=== PATIENT | male | born 1985 | race Asian ===

== ENCOUNTER 2022-12-13 04:40 | Emergency (ER) | payer OTHER, SELFPAY ==
--- NOTE | ~2022-12-13 | CT_ITS ---
CT of the Abdomen and Pelvis: Indication: Abdominal pain Technique: 2.5 mm axial scans were obtained through the abdomen and pelvis following intravenous adm inistration of 100 cc of Omnipaque 350. Dose reduction technique was used on this scan by utilizing a utomated exposure control and iterative reconstruction technique. The dose-length product (DLP) was 2 88.54 mGy-cm. Findings: Scans through the lung bases are unremarkable. The liver, spleen, pancreas, gallbladder, adrenals and kidneys are within normal limits. No evidence of aortic aneurysm. No lymphadenopathy. No bowel obstruction or bowel wall thickening. There is no evidence to suggest acute appendicitis. Images through the pelvis were performed. Questionable minimal urinary bladder wall thickening. No pe lvic mass seen. No ascites. Impression: Questionable mild urinary bladder wall thickening. Correlate for cystitis. No other significant findings. Reviewed, dictated and finalized at [facility]. Impression: Questionable mild urinary bladder wall thickening. Correlate for cystitis. No other significant findings.
[2022-12-13 04:44] VITALS: BP 155/91; PULSE 62; RESP 17; TEMP 36.4; O2SAT 100
--- NOTE | 2022-12-13 05:31 | ED.GENADULT ---
HPI - General Adult General Chief complaint: Abdominal Pain Stated complaint: RLQ pain Time Seen by Provider: 12/13/22 04:51 History of Present Illness HPI narrative: This is a 37-year-old male who speaks Filipino presenting ED for abdominal pain. Regulatory Lead service was used for all communication. Patient says that the pain started approximately 7 hours prior to arrival. It originally in the upper right but migrated to the right lower quadrant. It is a burning pain that is 10/10 and comes and goes. He has never had pain like this before there are no exacerbating or alleviating factors. He did have an episode of diarrhea. No fever chills nausea vomiting chest pain difficulty breathing. He notes some pain on urination. Patient attempted to relieve his pain by coining himself which was unsuccessful. Related Data Allergies Allergy/AdvReac Type Severity Reaction Status Date / Time haloperidol AdvReac Swelling Verified 12/13/22 07:26 of the Eye [facility] Past Medical History Medical History Asthma Exam Narrative: APPEARANCE: No apparent distress. Head: atraumatic. EYES: EOMI, NOSE: Atraumatic NECK: Trachea midline RESPIRATORY: No increased rate of breathing CARDIOVASCULAR: RRR, ABDOMINAL: soft with tenderness to palpation in the right lower quadrant. No guarding or rebound MUSCULOSKELETAl: No obvious deformities NEURO: Alert. Moving 4/4 extremities SKIN:: patient has aden over his chest and arms from [place]. He has cutting aden on his back. PSYCHIATRIC: Normal affect Course Vital Signs Vital signs: Vital Signs Temperature 97.6 F 12/13/22 04:44 Pulse Rate 62 12/13/22 04:44 Respiratory Rate 17 12/13/22 04:44 Blood Pressure 155/91 H 12/13/22 04:44 Pulse Oximetry 100 12/13/22 04:44 Oxygen Delivery Room Air 12/13/22 04:44 Temperature 97.6 F 12/13/22 04:44 Pulse Rate 62 12/13/22 04:44 Respiratory Rate 17 12/13/22 04:44 Blood Pressure 155/91 H 12/13/22 04:44 Pulse Oximetry 100 12/13/22 04:44 Oxygen Delivery Room Air 12/13/22 04:44 Medical Decision Making [facility] Narrative Medical decision making narrative: -Presentation: 37-year-old male presenting with right lower quadrant abdominal pain. -DDX includes but is not limited to: Appendicitis, gastritis, gallbladder disease, UTI, colitis -Co-morbidities complicating care: asthma -Social determinants of health: patient works at a [employer] shop, speaks Filipino -External Chart Review: none -Hx from independent Sources: sister at bedside -Discussion of Management/Consultants: none -Independent interpretation of studies: White count 10.5. Metabolic panel normal. Urinalysis not indicative of infection. CT abdomen pelvis showed some slight bladder wall thickening but no other findings. Dx tests considered but not ordered: -Procedures: -Interventions: The 2 L normal saline, 20 mg Pepcid, 5 mg Haldol, 0.5 mg Dilaudid, 10 mg dexamethasone, 50 mg Benadryl -Shared decision making / Disposition: After the patient received the Haldol he had some localized swelling of his right eyelid. No other hives, no nausea vomiting or difficulty breathing. He was given 10 mg of dexamethasone 50 mg of Benadryl. he was monitored with no progression of his symptoms. The rest the patient's workup is negative. Abdominal exam is benign and his pain is resolved. Patient was given return precautions and primary care follow-up. -RX: Motrin,tylenol Vital Signs Vital Signs: Vital Signs Temperature 97.6 F 12/13/22 04:44 Pulse Rate 62 12/13/22 04:44 Respiratory Rate 12/13/22 04:44 Blood Pressure 155/91 H 12/13/22 04:44 Pulse Oximetry 100 12/13/22 04:44 Oxygen Delivery Room Air 12/13/22 04:44 Temperature 97.6 F 12/13/22 04:44 Pulse Rate 62 12/13/22 04:44 Respiratory Rate 12/13/22 04:44 Blood Pressure 155/91 H
[2022-12-13] MEDS: FAMOTIDINE 20 MG/2 ML VIAL IV PUSH (05:53)
[2022-12-13] MEDS: HALOPERIDOL LACTATE 5 MG/ML VIAL IM (05:54)
[2022-12-13] MEDS: SODIUM CHLORIDE 0.9% IV 1,000 ML 999 ML IV CONT (05:54)
[2022-12-13 05:56] LABS: Basophils Percent Auto 0.2 % (0.2-1.2); Eosinophils Absolute Auto 0.1 K/mm3 (0-0.3); Eosinophils Percent Auto 0.5 % (0-4.4); Hematocrit 42.9 % (42.0-52.0); Hemoglobin 14.5 g/dL (14.0-18.0); Immature Granulocyte Absolute 0.04 K/mm3 (0.00-0.031); Immature Granulocyte Percent A 0.4 % (0-0.5); Lymphocytes Absolute Auto 1.73 K/mm3 (0.9-3.2); Lymphocytes Percent Auto 16.5 % (18.3-44.2); Mean Corpuscular HGB Conc 33.8 g/dl (32-36); Mean Corpuscular Hemoglobin 26.2 pg (26-34); Mean Corpuscular Volume 77.6 fl (80-100); Mean Platelet Volume 9.7 fl (7.4-10.4); Monocytes Absolute Auto 0.8 K/mm3 (0.1-0.6); Monocytes Percent Auto 7.7 % (2.6-8.5); Neutrophils Absolute Auto 7.8 K/mm3 (1.3-6.7); Neutrophils Percent Auto 74.7 % (45.5-73.1); Platelet Count Result 277 k/mm3 (150-375); Red Blood Count 5.53 M/mm3 (4.6-6.20); Red Cell Distribution Width 12.8 % (11.5-14.5); White Blood Count 10.5 K/mm3 (4.5-10.0)
[2022-12-13 05:58] LABS: Appearance Urine Clear (Clear); Bilirubin Urine Negative (Negative); Blood Urine Negative (Negative); Color Urine Yellow (Yellow); Glucose Urine UA Negative (Negative); Ketones Urine Negative (Negative); Leukocyte Esterase Ur Negative LEU/UL (Negative); Nitrate Urine Negative (Negative); Protein Urine Negative (Negative); Specific Grav Ur 1.018 (1.001-1.035); Urobilinogen Urine 0.2 mg/dL (<2.0)
[2022-12-13 05:59] LABS: Add Urine Microscopic? NO
[2022-12-13 06:10] LABS: Alanine Aminotransferase 53 U/L (6-50); Albumin Level 4.6 g/dL (3.5-5.1); Alkaline Phosphatase 88 U/L (38-126); Anion Gap 8 mmol/L (8-16); Aspartate Amino Transferase 49 U/L (17-59); Bilirubin,Total 0.5 mg/dL (0.2-1.3); Blood Urea Nitrogen 11 mg/dL (9-20); Calcium 9.1 mg/dL (8.4-10.2); Carbon Dioxide 26 mmol/L (22-30); Chloride 104 mmol/L (98-107); Estimated CRCL calculation 104 ml/min; Estimated Glomerular Filt Rate > 60; Glucose 95 mg/dL (65-110); Lipase 92 U/L (23-300); Potassium 3.9 mmol/L (3.4-5.0); Sodium 138 mmol/L (137-145)
[2022-12-13 06:11] LABS: Lactic Acid Reflex 1.2 mmol/L (0.7-2.0)
[2022-12-13] MEDS: HYDROmorphone HCL INJ (*CRX) 1 MG/ML SYR 0.5 MG IV PUSH (06:26)
[2022-12-13] MEDS: diphenhydrAMINE HCl INJ 50 MG/ML VIAL IV PUSH (07:05)
--- NOTE | 2022-12-13 07:11 | PC.NURSE ---
0635 - Called to pt room for redness and swelling on pt right lower eye lid. MD notified and orders received for pepcid and dexamethasone. Pt probably allergic to Haldol.
--- NOTE | 2022-12-13 07:13 | PC.NURSE ---
0705 - Swelling increased more on lower right eye lips. MD made aware, orders received to place ice pack on face. No respiratory distress noted, no alterations in airway, circulation or breathing.
[2022-12-13 09:53] VITALS: BP 129/77; PULSE 71; RESP 18; O2SAT 100
== END 2022-12-13 09:03 | disposition home or self-care (01) ==
PROVIDERS: Emergency Provider Emergency Medicine
DX: R10.31 Right lower quadrant pain (principal); H57.89 Other specified disorders of eye and adnexa; T43.4X5A Adverse effect of butyrophenone and thiothixene neuroleptics, initial encounter; J45.909 Unspecified asthma, uncomplicated
CPT/HCPCS: 36415; 74177; 80053; 81003; 83605; 83690; 85025; 96361; 96372; 96374; 96375; 99284; J1100; J1170; J1200; J1630; J7030; Q9967

== ENCOUNTER 2025-04-03 14:37 | Emergency (ER) | payer SELFPAY ==
--- NOTE | 2025-04-03 14:41 | ED_ITS ---
HPI - General Adult General Chief complaint: Upper Respiratory Infection Stated complaint: chest burning, cough, need asthma pump refill Time Seen by Provider: 04/03/25 14:41 Source: patient and family Mode of arrival: ambulatory Limitations: no limitations History of Present Illness HPI narrative: Pt is a 39 y/o male presenting with his s/o for evaluation of URI sx. Sx reported include cough, rhinorrhea, congestion. No constitutional sx. Reports sx have exacerbated his asthma. Has albuterol inhaler that he has been using PRN--requesting refill before he runs out. No known exposure to COVID,FLU,STREP,PNA. No hemoptysis. No additional tx initiated [employer]. No additional complaints. Related Data Home Medications ?Medication ?Instructions ?Recorded ?Confirmed ?Last Taken ?Type albuterol 04/03/25 Unknown History atorvastatin 40 mg tablet mg 04/03/25 Unknown History clopidogrel 75 mg tablet mg 04/03/25 Unknown History Allergies Allergy/AdvReac Type Severity Reaction Status Date / Time haloperidol AdvReac Swelling Verified 04/03/25 14:40 of the Eye Review of Systems Review of Systems: CONSTITUTIONAL: Denies body aches, fever, chills, or sweats. EYES: Denies visual changes, redness, or discharge. ENT: Reports rhinorrhea, congestion, denies sore throat, or otalgia. CARDIOVASCULAR: Denies chest pain, palpitations, or edema. RESPIRATORY: reports cough, dyspnea, wheezing, burning in chest with coughing. GASTROINTESTINAL: Denies abdominal pain, nausea, vomiting, or diarrhea. GENITOURINARY: Denies dysuria or hematuria. SKIN: Denies rash, itching, or wounds. MUSCULOSKELETAL: Denies back pain, joint pain, or myalgia. NEUROLOGIC: Denies headache, numbness, tingling, or weakness. PSYCH: Denies depression or anxiety. All systems reviewed & are unremarkable except as noted in HPI and below PMFSH Past Medical History Medical History Asthma Exam Narrative: GENERAL: Well-appearing, well-nourished, and in no acute distress. HEAD: Normocephalic, atraumatic. EYES: EOMI. No redness or drainage. Conjunctivae normal. ENT: Mucous membranes pink and moist. Nares clear. No rhinorrhea. TMs normal bilaterally. Throat normal. Uvula midline. NECK: Normal AROM. Supple. No lymphadenopathy. CHEST: No respiratory distress. Faint expiratory wheezing noted throughout HEART: Regular rate and rhythm. No murmur appreciated. Normal peripheral pulses. ABDOMEN: Soft, nontender, nondistended, normal active bowel sounds. MUSCULOSKELETAL: No bony tenderness. EXTREMITIES: Normal range of motion. No edema. SKIN: Warm, dry, no rash. Capillary refill normal. Normal skin turgor. NEURO: No focal deficits. Alert and oriented x3. Gait steady. PSYCH: Normal affect. No signs of depression or anxiety. Course Course Level of Care: Express Care Visit Vital Signs Vital signs: Vital Signs Temperature 97.7 F 04/03/25 14:48 Pulse Rate 69 04/03/25 14:48 Respiratory Rate 16 04/03/25 14:48 Blood Pressure 127/85 04/03/25 14:48 Pulse Oximetry 98 04/03/25 14:48 Temperature 97.7 F 04/03/25 14:48 Pulse Rate 69 04/03/25 14:48 Respiratory Rate 16 04/03/25 14:48 Blood Pressure 127/85 04/03/25 14:48 Pulse Oximetry 98 04/03/25 14:48 Oxygen Delivery Room Air 04/03/25 14:50 Medical Decision Making Vital Signs Vital Signs: Vital Signs Temperature 97.7 F 04/03/25 14:48 Pulse Rate 69 04/03/25 14:48 Respiratory Rate 16 04/03/25 14:48 Blood Pressure 127/85 04/03/25 14:48 Pulse Oximetry 98 04/03/25 14:48 Temperature 97.7 F 04/03/25 14:48 Pulse Rate 69 04/03/25 14:48 Respiratory Rate 16 04/03/25 14:48 Blood Pressure 127/85 04/03/25 14:48 Pulse Oximetry 98 04/03/25 14:48 Oxygen Delivery Room Air 04/03/25 14:50 Lab Data Lab results reviewed: Yes I reviewed the patient's lab results. Labs: Lab Results 04/03/25 04/03/25 Range/Units 14:55 15:26 POC Influenza A Ag Negative Negative (Negative) POC Influenza B Ag Negative Negative (Negative) POC SARS CoV-2 Ag Negative Negative (Negative) Discharge Plan Discharge Clinical Impression: Upper respiratory infection Qualifiers: URI type: unspecified URI Qualified Code(s): J06.9 - Acute upper respiratory infection, unspecified Asthma exacerbation Qualifiers: Asthma severity: mild Asthma persistence: intermittent Qualified Code(s): J45.21 - Mild intermittent asthma with (acute) exacerbation Patient Disposition: Home Condition: Stable Instructions: Antibiotic Form, Cold Symptoms (ED) Additional Instructions: Go straight to ER should your symptoms become worse or should any new symptoms develop Patient Language: Burmese Prescriptions: New albuterol sulfate [Ventolin HFA] 90 mcg/actuation HFA aerosol inhaler 1 puff inhalation QID PRN (Reason: shortness of breath or wheezing) Qty: 8.5 0RF prednisone 20 mg tablet 60 mg PO DAILY Qty: 15 0RF No Action atorvastatin 40 mg tablet clopidogrel 75 mg tablet albuterol Follow-up/Referrals: Jeff Jameson APRN [Primary Care Provider, Internal Medicine] - 04/04/25 Time of Disposition: 15:17
[2025-04-03 14:48] VITALS: BP 127/85; PULSE 69; RESP 16; TEMP 36.5; O2SAT 98
[2025-04-03 15:28] LABS: EDCOVIDSCREEN Negative (Negative); EDINFLUASCREEN Negative (Negative); EDINFLUBSCREEN Negative (Negative)
[2025-04-03 15:28] LABS: EDCOVIDSCREEN Negative (Negative); EDINFLUASCREEN Negative (Negative); EDINFLUBSCREEN Negative (Negative)
== END 2025-04-03 15:30 | disposition home or self-care (01) ==
PROVIDERS: Emergency Provider Registered Nurse; PCP Nurse Practitioner
DX: J06.9 Acute upper respiratory infection, unspecified (principal); J45.21 Mild intermittent asthma with (acute) exacerbation; Z20.822 Contact with and (suspected) exposure to COVID-19
CPT/HCPCS: 87426; 87804; 99213; G0463